=== PATIENT | male | born 1990 | race Hispanic/Latino ===

== ENCOUNTER 2019-11-05 07:12 | Outpatient (CLI) | payer OTHER ==
--- NOTE | 2019-11-05 08:28 | Cat Scan Report ---
CT FACIAL BONES WITHOUT CONTRAST INDICATION : SMALL LINEAR LUCENCY ON THE RIGHT/POSSIBLE FRACTURE LINE ON THE RIGHT. RIGHT CHEEK PAIN. TECHNIQUE: Axial imaging performed through the face with reconstructed images also reviewed. Sagitta l and coronal reformatted images. All CT scans at this location are performed using CT dose reduction for ALARA by means of automated exposure control. COMPARISON: None at this facility FINDINGS: Multiple right facial fractures are identified which in my opinion appear more chronic rocky n acute. Mildly displaced fractures are identified involving the right lateral orbital wall, right in ferior orbital wall, right anterior maxillary wall and right posterior lateral maxillary wall. There is also a nondisplaced fracture base of the coronoid process of the mandible on the right side. No si gnificant associated soft tissue swelling is appreciated on the right side. Please correlate with the patient's history. The remaining facial bones are intact. There is mild mucosal thickening throughout the right maxillar y sinus, otherwise, the sinuses are well-aerated. The nasal septum is markedly deviated to the right side by 8 mm. The visualized upper cervical spine is intact. The skull base is intact. The imaged brain is unremark able. IMPRESSION: Multiple right facial fractures are identified as outlined above which appear chronic. Pl ease correlate with the patient's clinical history and timeline. Signer Name: Mohit Isaac Jr, MD Signed: 11/05/2019 8:24 AM Workstation Name: [id number]
== END 2019-11-05 07:13 | disposition home or self-care (01) ==
LOC: CT 07:12
PROVIDERS: ATTEND Family Medicine
DX: S02.31XA Fracture of orbital floor, right side, initial encounter for closed fracture (principal); S02.40CA Maxillary fracture, right side, initial encounter for closed fracture; S02.631A Fracture of coronoid process of right mandible, initial encounter for closed fracture; J34.2 Deviated nasal septum; X58.XXXA Exposure to other specified factors, initial encounter; Y93.89 Activity, other specified; Y92.89 Other specified places as the place of occurrence of the external cause; Y99.8 Other external cause status
CPT/HCPCS: 70488